=== PATIENT | male | born 1965 | race African-American/Black ===

== ENCOUNTER 2018-06-06 09:11 | Inpatient (IN) | payer OTHER ==
--- NOTE | 2018-06-06 11:00 | HP ---
CIWA Score Nausea/Vomitin Muscle Tremors: 2 Anxiety: 2 Agitation: 2 Paroxysmal Sweats: 1-Minimal Palms Moist Orientation: 0-Oriented Tacttile Disturbances: 1-Very Mild Itch/Numbness Auditory Disturbances: 1-Very Mild Visual Disturbances: 0-None Headache: 2-Mild CIWA-Ar Total Score: 13 - Admission Criteria OASAS Guidelines: Admission for Medically Managed Detox: Requires at least one of the followin. CIWA greater than 12 2. Seizures within the past 24 hours 3. Delirium tremens within the past 24 hours 4. Hallucinations within the past 24 hours 5. Acute intervention needed for co occurring medical disorder 6. Acute intervention needed for co occurring psychiatric disorder 7. Severe withdrawal that cannot be handled at a lower level of care (continued vomiting, continued diarrhea, abnormal vital signs) requiring intravenous medication and/or fluids 8. Admission ROS BHS - HPI Chief Complaint: i need help to stop drinking alcohol and cocaine Allergies/Adverse Reactions: Allergies Allergy/AdvReac Type Severity Reaction Status Date / Time No Known Allergies Allergy Verified 06/06/18 09:46 History of Present Illness: this 53 years old male with alcohol,cocaine dependence seeking detox,withdrawal symptom, [facility] has been in [facility] in the past has been drinking heavy for last 2 months nicotine dependence 1/2 pack,does not need nicotine replacement longest period of sobriety 10 years may go to rehab after detox Exam Limitations: No Limitations - Ebola screening Have you traveled outside of the country in the last 21 days: No Have you had contact with anyone from an Ebola affected area: No Do you have a fever: No - Review of Systems Constitutional: Loss of Appetite, Malaise, Night Sweats, Changes in sleep, Weakness, Unintentional Wgt. Loss EENT: reports: Nose Congestion Respiratory: reports: No Symptoms reported Cardiac: reports: No Symptoms Reported GI: reports: Nausea, Poor Appetite, Abdominal cramping : reports: No Symptoms Reported Musculoskeletal: reports: Back Pain, Muscle Pain Integumentary: reports: Dryness Neuro: reports: Headache, Tremors Endocrine: reports: No Symptoms Reported Hematology: reports: No Symptoms Reported Psychiatric: reports: No Sypmtoms Reported, Judgement Intact, Mood/Affect Appropiate, Orientated x3 Other Systems: Reviewed and Negative Patient History - Patient Medical History Hx Anemia: No Hx Asthma: No Hx Chronic Obstructive Pulmonary Disease (COPD): No Hx Cancer: No Hx Cardiac Disorders: No Hx Congestive Heart Failure: No Hx Hypertension: No Hx Hypercholesterolemia: No Hx Pacemaker: No HX Cerebrovascular Accident: No Hx Seizures: No Hx Dementia: No Hx Diabetes: No Hx Gastrointestinal Disorders: No Hx Liver Disease: No Hx Genitourinary Disorders: No Hx Sexually Transmitted Disorders: No Hx Renal Disease (ESRD): No Hx Thyroid Disease: No Hx Human Immunodeficiency Virus (HIV): No (last hiv 12/29 negative) Hx Hepatitis C: No Hx Depression: No Hx Suicide Attempt: No Hx Bipolar Disorder: No Hx Schizophrenia: No Other Medical History: no sjuicidal,no homicidal - Patient Surgical History Past Surgical History: Yes Hx Abdominal Surgery: Yes (right inguinal hernia in 1999) - PPD History Previous Implant?: Yes Documented Results: Positive w/o proof Implanted On Prior [facility] Admission?: No PPD to be Administered?: No - Smoking Cessation Smoking history: Current every day smoker Have you smoked in the past 12 months: Yes Aproximately how many cigarettes per day: 10 Hx Chewing Tobacco Use: No Initiated information on smoking cessation: Yes 'Breaking Loose' booklet given: 06/06/18 - Substance & Tx. History Hx Alcohol Use: Yes Hx Substance Use: Yes Substance Use Type: Alcohol, Cocaine Hx Substance [place] - Substances abused Alcohol Substance route: Oral Frequency: Daily Amount used: 2 pints of vodka and henessy/6 packs of 25 ozs of beer Age of first use: 17 Date of last use: 06/06/18 Crack Substance route: Smoking Frequency: Daily Amount used: 200$ to 300$ Age of first use: 32 Date of last use: 06/05/18 Family Disease History - Family Disease History Family History: Denies Admission Physical Exam BHS - Vital Signs Vital Signs: Vital Signs - 24 hr 06/06/18 06/06/18 09:45 10:21 Temperature 97.3 F L 97.3 F L Pulse Rate 73 73 Respiratory 18 18 Rate Blood Pressure 105/65 105/65 - Physical General Appearance: Yes: Moderate Distress, Tremorous, Irritable, Sweating, Anxious HEENTM: Yes: Normal ENT Inspection, XENIA, Pharynx Normal Respiratory: Yes: Within Normal Limits, Lungs Clear, Normal Breath Sounds Neck: Yes: Within Normal Limits, Supple, Trachea in good position Breast: Yes: Within Normal Limits Cardiology: Yes: Within Normal Limits, Regular Rhythm, Regular Rate, S1, S2 Abdominal: Yes: Within Normal Limits, Normal Bowel Sounds, Non Tender, Flat, Soft Genitourinary: Yes: Within Normal Limits Back: Yes: Muscle Spasm Musculoskeletal: Yes: Back pain, Muscle Pain Extremities: Yes: Tremors Neurological: Yes: 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 II-XII NML intact, Fully Oriented, Alert, Motor Strength 5/5 Integumentary: Yes: Dry Lymphatic: Yes: Within Normal Limits - Diagnostic (1) Alcohol dependence with uncomplicated withdrawal Current Visit: Yes Status: Acute (2) Cocaine dependence Current Visit: Yes Status: Acute (3) Positive PPD Current Visit: Yes Status: Acute (4) Dehydration Current Visit: Yes Status: Acute (5) Weight loss Current Visit: Yes Status: Acute (6) Nicotine dependence Current Visit: Yes Status: Acute (7) History of right inguinal hernia repair Current Visit: Yes Status: Acute Cleared for Admission [facility] - Detox or Rehab [facility] Level of Care: Medically Managed Detox Regimen/Protocol: Librium Breathalyzer - Breathalyzer Breathalyzer: 0 Urine Drug Screen - Test Device Lot number: [id number] Expiration date: 01/11/20 - Control Is test valid?: Yes - Results Drug screen NEGATIVE: No Urine drug screen results: [facility]-Cocaine Inpatient Rehab Admission - Rehab Decision to Admit Inpatient rehab admission?: No
[2018-06-06] MEDS ORDERED: BISMUTH SUBSALICYLATE 262 MG/15 ML BTL PO PRN (11:12)
[2018-06-06] MEDS ORDERED: MAGNESIUM HYDROX 2400MG/30ML ORAL SUSPENSION 30 ML CUP PO PRN (11:12)
[2018-06-06] MEDS ORDERED: MAG HYDROX/AL HYDROX/SIMETH 30 ML UNIT-DOSE CUP PO PRN (11:12)
[2018-06-06] MEDS ORDERED: METHOCARBAMOL 500 MG TABLET PO PRN (11:12)
[2018-06-06] MEDS ORDERED: MELATONIN 5 MG TABLETS PO PRN (11:12)
[2018-06-06] MEDS ORDERED: chlordiazePOXIDE HCL 25 MG CAPSULE PO PRN (11:12)
[2018-06-06] MEDS ORDERED: ACETAMINOPHEN 325 MG TABLET (FP) PO PRN ×2 (11:12)
[2018-06-06] MEDS ORDERED: IBUPROFEN 400 MG TABLET (FP) PO PRN (11:12)
[2018-06-06] MEDS ORDERED: MENTHOL/PHENOL 1 EACH UD MM PRN (11:12)
[2018-06-06] MEDS ORDERED: hydrOXYzine PAMOATE 25 MG CAPSULE (FP) PO PRN (11:12)
[2018-06-06] MEDS ORDERED: MAGNESIUM CITRATE 300 ML BOTTLE PO PRN (11:12)
[2018-06-06 14:49] LABS: HEMATOCRIT 40.5 % (35.4-49); HEMOGLOBIN 13.1 GM/dL (11.7-16.9); MCH 30.7 pg (25.7-33.7); MCHC 32.3 g/dl (32.0-35.9); MEAN CELL VOLUME 95.3 fl (80-96); MEAN PLT VOLUME 6.9 fl (7.5-11.1); PLATELET COUNT 354 K/MM3 (134-434); RBC 4.25 M/mm3 (4.00-5.60); RDW 13.5 % (11.9-15.9); WHITE BLOOD COUNT 4.8 K/mm3 (4.0-10.0)
[2018-06-06 15:01] LABS: SICKLE CELL SCREEN NEGATIVE (NEGATIVE)
[2018-06-06 15:07] LABS: ALBUMIN 3.7 g/dl (3.4-5.0); ALK PHOS 75 U/L (45-117); ANION GAP 7 MMOL/L (8-16); BILIRUBIN,TOTAL 0.3 mg/dL (0.2-1); BLOOD UREA NITROGEN 18 mg/dL (7-18); CALCIUM 9.4 mg/dL (8.5-10.1); CHLORIDE 101 mmol/L (98-107); CO2 29 mmol/L (21-32); CREATININE 0.9 mg/dL (0.55-1.3); GLUCOSE,RANDOM 82 mg/dL (74-106); POTASSIUM 4.3 mmol/L (3.5-5.1); SGOT/AST 10 U/L (15-37); SGPT/ALT 15 U/L (13-61); SODIUM 137 mmol/L (136-145); TOT PROT 7.9 g/dl (6.4-8.2)
[2018-06-06] MEDS: chlordiazePOXIDE HCL 25 MG CAPSULE PO SCH ×2 (16:40→22:20)
[2018-06-06] MEDS: THIAMINE HCL 100 MG TABLET (FP) PO SCH (22:20)
[2018-06-07 00:08] LABS: URINE APPEARANCE CLOUDY; URINE BACTERIA 7.4 /hpf (NEGATIVE); URINE BILIRUBIN NEGATIVE (NEGATIVE); URINE CASTS 3 /lpf (0-8); URINE COLOR YELLOW; URINE GLUCOSE (UA) NEGATIVE (NEGATIVE); URINE KETONE TRACE (NEGATIVE); URINE LEUK ESTERASE NEGATIVE (NEGATIVE); URINE NITRITE NEGATIVE (NEGATIVE); URINE PROTEIN NEGATIVE (NEGATIVE); URINE RBC 19 /hpf (0-4); URINE WBC 4 /hpf (0-5)
[2018-06-07] MEDS: chlordiazePOXIDE HCL 25 MG CAPSULE PO SCH ×4 (06:55→22:41)
[2018-06-07] MEDS: PRENATAL VITAMINS W/ FOLIC ACID TABLET (FP) PO SCH (10:06)
--- NOTE | 2018-06-07 15:24 | EKG ---
Test Reason : Blood Pressure : / mmHG Vent. Rate : 058 BPM Atrial Rate : 058 BPM P-R Int : 152 ms QRS Dur : 080 ms QT Int : 416 ms P-R-T Axes : -85 025 034 degrees QTc Int : 408 ms UNUSUAL P AXIS, POSSIBLE ECTOPIC ATRIAL BRADYCARDIA ABNORMAL ECG NO PREVIOUS ECGS AVAILABLE Confirmed by YULIANA ZIMMERMAN MD ([id number]) on 06/07/2018 3:23:23 PM Referred By: Confirmed By:YULIANA ZIMMERMAN MD
--- NOTE | 2018-06-07 17:30 | PN ---
[facility] CIWA - CIWA Score Nausea/Vomitin-No Nausea/No Vomiting Muscle Tremors: 3 Anxiety: 3 Agitation: 1-Slight > Activity Paroxysmal Sweats: No Perspiration Orientation: 0-Oriented Tacttile Disturbances: 2-Mild Itch/Numbness/Burn Auditory Disturbances: 2-Mild Harshness/Frighten Visual Disturbances: 1-Very Mild Sensitivity Headache: 0-None Present CIWA-Ar Total Score: 12 BHS Progress Note (SOAP) Subjective: Fatigue, Tremors, Anxious, Interrupted sleep. Objective: PATIENT A & O X 3, OBSERVED AMBULATING ON UNIT UNASSISTED. IN NO ACUTE DISTRESS. 06/07/18 17:29 Vital Signs Temperature 96.7 F L 06/07/18 14:15 Pulse Rate 88 06/07/18 14:15 Respiratory Rate 18 06/07/18 14:15 Blood Pressure 129/73 06/07/18 14:15 O2 Sat by Pulse Oximetry (%) Laboratory Tests 06/06/18 06/06/18 06/06/18 11:05 11:05 11:05 WBC 4.8 RBC 4.25 Hgb 13.1 Hct 40.5 MCV 95.3 MCH 30.7 MCHC 32.3 RDW 13.5 Plt Count 354 MPV 6.9 L Sickle Cell Screen Negative Sodium 137 Potassium 4.3 Chloride 101 Carbon Dioxide 29 Anion Gap 7 L BUN 18 Creatinine 0.9 Creat Clearance w eGFR 88.96 Random Glucose 82 Calcium 9.4 Total Bilirubin 0.3 AST 10 L ALT 15 Alkaline Phosphatase 75 Total Protein 7.9 Albumin 3.7 Urine Color Urine Appearance Urine pH Ur Specific [place] Urine Protein Urine Glucose (UA) Urine Ketones Urine Blood Urine Nitrite Urine Bilirubin Urine Urobilinogen Ur Leukocyte Esterase Urine WBC (Auto) Urine RBC (Auto) Urine Casts (Auto) U Epithel Cells (Auto) Urine Crystals (Auto) Urine Bacteria (Auto) RPR Titer Nonreactive 06/06/18 18:33 WBC RBC Hgb Hct MCV MCH MCHC RDW Plt Count MPV Sickle Cell Screen Sodium Potassium Chloride Carbon Dioxide Anion Gap BUN Creatinine Creat Clearance w eGFR Random Glucose Calcium Total Bilirubin AST ALT Alkaline Phosphatase Total Protein Albumin Urine Color Yellow Urine Appearance Cloudy Urine pH 5.0 Ur Specific [place] 1.031 Urine Protein Negative Urine Glucose (UA) Negative Urine Ketones Trace H Urine Blood 1+ H Urine Nitrite Negative Urine Bilirubin Negative Urine Urobilinogen 1.0 Ur Leukocyte Esterase Negative Urine WBC (Auto) 4 Urine RBC (Auto) 19 Urine Casts (Auto) 3 U Epithel Cells (Auto) 1.0 Urine Crystals (Auto) none seen Urine Bacteria (Auto) 7.4 RPR Titer LABS NOTED. Assessment: 06/07/18 17:29 WITHDRAWAL SYMPTOMS. Plan: CONTINUE DETOX.
[2018-06-07] MEDS: THIAMINE HCL 100 MG TABLET (FP) PO SCH (22:41)
[2018-06-08] MEDS: chlordiazePOXIDE HCL 25 MG CAPSULE PO SCH ×2 (06:15→10:15)
[2018-06-08] MEDS: PRENATAL VITAMINS W/ FOLIC ACID TABLET (FP) PO SCH (10:15)
--- NOTE | 2018-06-08 16:24 | PN ---
S CIWA - CIWA Score Nausea/Vomitin-Mild Nausea/No Vomiting Muscle Tremors: 2 Anxiety: 1-Mildly Anxious Agitation: 2 Paroxysmal Sweats: 1-Minimal Palms Moist Orientation: 1-Uncertain about Date Tacttile Disturbances: 0-None Auditory Disturbances: 0-None Visual Disturbances: 0-None Headache: 1-Very Mild CIWA-Ar Total Score: 9 BHS Progress Note (SOAP) Subjective: feeling better today tolerate food and fluid well social with peers in day room Objective: 06/08/18 16:26 Vital Signs Temperature 97.9 F 06/08/18 14:36 Pulse Rate 85 06/08/18 14:36 Respiratory Rate 18 06/08/18 14:36 Blood Pressure 121/81 06/08/18 14:36 O2 Sat by Pulse Oximetry (%) Laboratory Last Values WBC 4.8 K/mm3 (4.0-10.0) 06/06/18 11:05 RBC 4.25 M/mm3 (4.00-5.60) 06/06/18 11:05 Hgb 13.1 GM/dL (11.7-16.9) 06/06/18 11:05 Hct 40.5 % (35.4-49) 06/06/18 11:05 MCV 95.3 fl (80-96) 06/06/18 11:05 MCH 30.7 pg (25.7-33.7) 06/06/18 11:05 MCHC 32.3 g/dl (32.0-35.9) 06/06/18 11:05 RDW 13.5 % (11.9-15.9) 06/06/18 11:05 Plt Count 354 K/MM3 (134-434) 06/06/18 11:05 MPV 6.9 fl (7.5-11.1) L 06/06/18 11:05 Sickle Cell Screen Negative (NEGATIVE) 06/06/18 11:05 Sodium 137 mmol/L (136-145) 06/06/18 11:05 Potassium 4.3 mmol/L (3.5-5.1) 06/06/18 11:05 Chloride 101 mmol/L (98-107) 06/06/18 11:05 Carbon Dioxide 29 mmol/L (21-32) 06/06/18 11:05 Anion Gap 7 MMOL/L (8-16) L 06/06/18 11:05 BUN 18 mg/dL (7-18) 06/06/18 11:05 Creatinine 0.9 mg/dL (0.55-1.3) 06/06/18 11:05 Creat Clearance w eGFR 88.96 (>60) 06/06/18 11:05 Random Glucose 82 mg/dL (74-106) 06/06/18 11:05 Calcium 9.4 mg/dL (8.5-10.1) 06/06/18 11:05 Total Bilirubin 0.3 mg/dL (0.2-1) 06/06/18 11:05 AST 10 U/L (15-37) L 06/06/18 11:05 ALT 15 U/L (13-61) 06/06/18 11:05 Alkaline Phosphatase 75 U/L (45-117) 06/06/18 11:05 Total Protein 7.9 g/dl (6.4-8.2) 06/06/18 11:05 Albumin 3.7 g/dl (3.4-5.0) 06/06/18 11:05 Urine Color Yellow 06/06/18 18:33 Urine Appearance Cloudy 06/06/18 18:33 Urine pH 5.0 (5.0-8.0) 06/06/18 18:33 Ur Specific [place] 1.031 (1.010-1.035) 06/06/18 18:33 Urine Protein Negative (NEGATIVE) 06/06/18 18:33 Urine Glucose (UA) Negative (NEGATIVE) 06/06/18 18:33 Urine Ketones Trace (NEGATIVE) H 06/06/18 18:33 Urine Blood 1+ (NEGATIVE) H 06/06/18 18:33 Urine Nitrite Negative (NEGATIVE) 06/06/18 18:33 Urine Bilirubin Negative (NEGATIVE) 06/06/18 18:33 Urine Urobilinogen 1.0 mg/dL (0.2-1.0) 06/06/18 18:33 Ur Leukocyte Esterase Negative (NEGATIVE) 06/06/18 18:33 Urine WBC (Auto) 4 /hpf (0-5) 06/06/18 18:33 Urine RBC (Auto) 19 /hpf (0-4) 06/06/18 18:33 Urine Casts (Auto) 3 /lpf (0-8) 06/06/18 18:33 U Epithel Cells (Auto) 1.0 /HPF (0-5/HPF) 06/06/18 18:33 Urine Crystals (Auto) none seen /hpf 06/06/18 18:33 Urine Bacteria (Auto) 7.4 /hpf (NEGATIVE) 06/06/18 18:33 RPR Titer Nonreactive (NONREACTIVE) 06/06/18 11:05 lab noted Assessment: 06/08/18 16:26 withdrawal sx Plan: continue detox
[2018-06-08] MEDS ORDERED: chlordiazePOXIDE HCL 10 MG CAPSULE PO PRN (17:00)
[2018-06-08] MEDS: chlordiazePOXIDE HCL 10 MG CAPSULE PO SCH ×2 (17:33→22:14)
[2018-06-08] MEDS: THIAMINE HCL 100 MG TABLET (FP) PO SCH (22:14)
[2018-06-09] MEDS: chlordiazePOXIDE HCL 10 MG CAPSULE PO SCH ×2 (05:09→10:08)
[2018-06-09] MEDS: PRENATAL VITAMINS W/ FOLIC ACID TABLET (FP) PO SCH (10:08)
[2018-06-09 13:12] VITALS: BP 127/76; PULSE 64; TEMP 96.4
--- NOTE | 2018-06-09 13:16 | PN ---
S CIWA - CIWA Score Nausea/Vomitin-No Nausea/No Vomiting Muscle Tremors: 1-None Visible, but Trail Anxiety: 1-Mildly Anxious Agitation: 1-Slight > Activity Paroxysmal Sweats: No Perspiration Orientation: 0-Oriented Tacttile Disturbances: 0-None Auditory Disturbances: 0-None Visual Disturbances: 1-Very Mild Sensitivity Headache: 1-Very Mild CIWA-Ar Total Score: 5 BHS Progress Note (SOAP) Subjective: feeling better but tired discuss aftercare with staff Objective: 06/09/18 13:18 Vital Signs Temperature 96.4 F L 06/09/18 13:11 Pulse Rate 64 06/09/18 13:11 Respiratory Rate 18 06/09/18 13:11 Blood Pressure 127/76 06/09/18 13:11 O2 Sat by Pulse Oximetry (%) Laboratory Last Values WBC 4.8 K/mm3 (4.0-10.0) 06/06/18 11:05 RBC 4.25 M/mm3 (4.00-5.60) 06/06/18 11:05 Hgb 13.1 GM/dL (11.7-16.9) 06/06/18 11:05 Hct 40.5 % (35.4-49) 06/06/18 11:05 MCV 95.3 fl (80-96) 06/06/18 11:05 MCH 30.7 pg (25.7-33.7) 06/06/18 11:05 MCHC 32.3 g/dl (32.0-35.9) 06/06/18 11:05 RDW 13.5 % (11.9-15.9) 06/06/18 11:05 Plt Count 354 K/MM3 (134-434) 06/06/18 11:05 MPV 6.9 fl (7.5-11.1) L 06/06/18 11:05 Sickle Cell Screen Negative (NEGATIVE) 06/06/18 11:05 Sodium 137 mmol/L (136-145) 06/06/18 11:05 Potassium 4.3 mmol/L (3.5-5.1) 06/06/18 11:05 Chloride 101 mmol/L (98-107) 06/06/18 11:05 Carbon Dioxide 29 mmol/L (21-32) 06/06/18 11:05 Anion Gap 7 MMOL/L (8-16) L 06/06/18 11:05 BUN 18 mg/dL (7-18) 06/06/18 11:05 Creatinine 0.9 mg/dL (0.55-1.3) 06/06/18 11:05 Creat Clearance w eGFR 88.96 (>60) 06/06/18 11:05 Random Glucose 82 mg/dL (74-106) 06/06/18 11:05 Calcium 9.4 mg/dL (8.5-10.1) 06/06/18 11:05 Total Bilirubin 0.3 mg/dL (0.2-1) 06/06/18 11:05 AST 10 U/L (15-37) L 06/06/18 11:05 ALT 15 U/L (13-61) 06/06/18 11:05 Alkaline Phosphatase 75 U/L (45-117) 06/06/18 11:05 Total Protein 7.9 g/dl (6.4-8.2) 06/06/18 11:05 Albumin 3.7 g/dl (3.4-5.0) 06/06/18 11:05 Urine Color Yellow 06/06/18 18:33 Urine Appearance Cloudy 06/06/18 18:33 Urine pH 5.0 (5.0-8.0) 06/06/18 18:33 Ur Specific [place] 1.031 (1.010-1.035) 06/06/18 18:33 Urine Protein Negative (NEGATIVE) 06/06/18 18:33 Urine Glucose (UA) Negative (NEGATIVE) 06/06/18 18:33 Urine Ketones Trace (NEGATIVE) H 06/06/18 18:33 Urine Blood 1+ (NEGATIVE) H 06/06/18 18:33 Urine Nitrite Negative (NEGATIVE) 06/06/18 18:33 Urine Bilirubin Negative (NEGATIVE) 06/06/18 18:33 Urine Urobilinogen 1.0 mg/dL (0.2-1.0) 06/06/18 18:33 Ur Leukocyte Esterase Negative (NEGATIVE) 06/06/18 18:33 Urine WBC (Auto) 4 /hpf (0-5) 06/06/18 18:33 Urine RBC (Auto) 19 /hpf (0-4) 06/06/18 18:33 Urine Casts (Auto) 3 /lpf (0-8) 06/06/18 18:33 U Epithel Cells (Auto) 1.0 /HPF (0-5/HPF) 06/06/18 18:33 Urine Crystals (Auto) none seen /hpf 06/06/18 18:33 Urine Bacteria (Auto) 7.4 /hpf (NEGATIVE) 06/06/18 18:33 RPR Titer Nonreactive (NONREACTIVE) 06/06/18 11:05 lab noted Assessment: 06/09/18 13:19 mild alcohol withdrawal sx Plan: continue detox
--- NOTE | 2018-06-09 14:48 | PN ---
S CIWA - CIWA Score Nausea/Vomitin-No Nausea/No Vomiting Muscle Tremors: None Anxiety: 2 Agitation: 1-Slight > Activity Paroxysmal Sweats: No Perspiration Orientation: 0-Oriented Tacttile Disturbances: 0-None Auditory Disturbances: 0-None Visual Disturbances: 0-None Headache: 0-None Present CIWA-Ar Total Score: 3 BHS Progress Note (SOAP) Subjective: Anxious (Mild). Patient concerned about aftercare options. Patient advised to consult his counselor regarding this matter. Patient verbalized understanding of recommendation. Patient denies any other Withdrawal / Detox symptoms at this time and reports that he physically feels well overall. Objective: PATIENT A & O X 3, OBSERVED AMBULATING ON UNIT UNASSISTED. IN NO ACUTE DISTRESS. 06/09/18 14:46 Vital Signs Temperature 96.4 F L 06/09/18 13:11 Pulse Rate 64 06/09/18 13:11 Respiratory Rate 18 06/09/18 13:11 Blood Pressure 127/76 06/09/18 13:11 O2 Sat by Pulse Oximetry (%) Laboratory Tests 06/06/18 06/06/18 06/06/18 11:05 11:05 11:05 WBC 4.8 RBC 4.25 Hgb 13.1 Hct 40.5 MCV 95.3 MCH 30.7 MCHC 32.3 RDW 13.5 Plt Count 354 MPV 6.9 L Sickle Cell Screen Negative Sodium 137 Potassium 4.3 Chloride 101 Carbon Dioxide 29 Anion Gap 7 L BUN 18 Creatinine 0.9 Creat Clearance w eGFR 88.96 Random Glucose 82 Calcium 9.4 Total Bilirubin 0.3 AST 10 L ALT 15 Alkaline Phosphatase 75 Total Protein 7.9 Albumin 3.7 Urine Color Urine Appearance Urine pH Ur Specific [place] Urine Protein Urine Glucose (UA) Urine Ketones Urine Blood Urine Nitrite Urine Bilirubin Urine Urobilinogen Ur Leukocyte Esterase Urine WBC (Auto) Urine RBC (Auto) Urine Casts (Auto) U Epithel Cells (Auto) Urine Crystals (Auto) Urine Bacteria (Auto) RPR Titer Nonreactive 06/06/18 18:33 WBC RBC Hgb Hct MCV MCH MCHC RDW Plt Count MPV Sickle Cell Screen Sodium Potassium Chloride Carbon Dioxide Anion Gap BUN Creatinine Creat Clearance w eGFR Random Glucose Calcium Total Bilirubin AST ALT Alkaline Phosphatase Total Protein Albumin Urine Color Yellow Urine Appearance Cloudy Urine pH 5.0 Ur Specific [place] 1.031 Urine Protein Negative Urine Glucose (UA) Negative Urine Ketones Trace H Urine Blood 1+ H Urine Nitrite Negative Urine Bilirubin Negative Urine Urobilinogen 1.0 Ur Leukocyte Esterase Negative Urine WBC (Auto) 4 Urine RBC (Auto) 19 Urine Casts (Auto) 3 U Epithel Cells (Auto) 1.0 Urine Crystals (Auto) none seen Urine Bacteria (Auto) 7.4 RPR Titer LABS NOTED. Assessment: 06/09/18 14:47 WITHDRAWAL SYMPTOMS. Plan: CONTINUE DETOX. PATIENT SCHEDULED FOR D/C TOMORROW.
--- NOTE | 2018-06-09 14:58 | DS ---
[facility] Detox Discharge Summary Admission Date: 06/06/18 Discharge Date: 06/09/18 - History Present History: Alcohol Dependence Additional Comments: 53 years old male admitted on 06/06/18 for alcohol withdrawal stabilization feeling better today preferring to go to alcohol rehab today alert no acute distress aftercare [facility] Pertinent Past History: bring in medication list and lab report to aftercare appointment - Physical Exam Results Vital Signs: Vital Signs Temperature 96.4 F L 06/09/18 13:11 Pulse Rate 64 06/09/18 13:11 Respiratory Rate 18 06/09/18 13:11 Blood Pressure 127/76 06/09/18 13:11 O2 Sat by Pulse Oximetry (%) Pertinent Admission Physical Exam Findings: alcohol withdrawal sx Laboratory Last Values WBC 4.8 K/mm3 (4.0-10.0) 06/06/18 11:05 RBC 4.25 M/mm3 (4.00-5.60) 06/06/18 11:05 Hgb 13.1 GM/dL (11.7-16.9) 06/06/18 11:05 Hct 40.5 % (35.4-49) 06/06/18 11:05 MCV 95.3 fl (80-96) 06/06/18 11:05 MCH 30.7 pg (25.7-33.7) 06/06/18 11:05 MCHC 32.3 g/dl (32.0-35.9) 06/06/18 11:05 RDW 13.5 % (11.9-15.9) 06/06/18 11:05 Plt Count 354 K/MM3 (134-434) 06/06/18 11:05 MPV 6.9 fl (7.5-11.1) L 06/06/18 11:05 Sickle Cell Screen Negative (NEGATIVE) 06/06/18 11:05 Sodium 137 mmol/L (136-145) 06/06/18 11:05 Potassium 4.3 mmol/L (3.5-5.1) 06/06/18 11:05 Chloride 101 mmol/L (98-107) 06/06/18 11:05 Carbon Dioxide 29 mmol/L (21-32) 06/06/18 11:05 Anion Gap 7 MMOL/L (8-16) L 06/06/18 11:05 BUN 18 mg/dL (7-18) 06/06/18 11:05 Creatinine 0.9 mg/dL (0.55-1.3) 06/06/18 11:05 Creat Clearance w eGFR 88.96 (>60) 06/06/18 11:05 Random Glucose 82 mg/dL (74-106) 06/06/18 11:05 Calcium 9.4 mg/dL (8.5-10.1) 06/06/18 11:05 Total Bilirubin 0.3 mg/dL (0.2-1) 06/06/18 11:05 AST 10 U/L (15-37) L 06/06/18 11:05 ALT 15 U/L (13-61) 06/06/18 11:05 Alkaline Phosphatase 75 U/L (45-117) 06/06/18 11:05 Total Protein 7.9 g/dl (6.4-8.2) 06/06/18 11:05 Albumin 3.7 g/dl (3.4-5.0) 06/06/18 11:05 Urine Color Yellow 06/06/18 18:33 Urine Appearance Cloudy 06/06/18 18:33 Urine pH 5.0 (5.0-8.0) 06/06/18 18:33 Ur Specific [place] 1.031 (1.010-1.035) 06/06/18 18:33 Urine Protein Negative (NEGATIVE) 06/06/18 18:33 Urine Glucose (UA) Negative (NEGATIVE) 06/06/18 18:33 Urine Ketones Trace (NEGATIVE) H 06/06/18 18:33 Urine Blood 1+ (NEGATIVE) H 06/06/18 18:33 Urine Nitrite Negative (NEGATIVE) 06/06/18 18:33 Urine Bilirubin Negative (NEGATIVE) 06/06/18 18:33 Urine Urobilinogen 1.0 mg/dL (0.2-1.0) 06/06/18 18:33 Ur Leukocyte Esterase Negative (NEGATIVE) 06/06/18 18:33 Urine WBC (Auto) 4 /hpf (0-5) 06/06/18 18:33 Urine RBC (Auto) 19 /hpf (0-4) 06/06/18 18:33 Urine Casts (Auto) 3 /lpf (0-8) 06/06/18 18:33 U Epithel Cells (Auto) 1.0 /HPF (0-5/HPF) 06/06/18 18:33 Urine Crystals (Auto) none seen /hpf 06/06/18 18:33 Urine Bacteria (Auto) 7.4 /hpf (NEGATIVE) 06/06/18 18:33 RPR Titer Nonreactive (NONREACTIVE) 06/06/18 11:05 lab noted - Treatment Hospital Course: Detox Protocol Followed, Detoxed Safely, Responded well, Discharged Condition Good, Rehab Referral Accepted Patient has Accepted a Rehab Referral to: [facility] - Medication Discharge Medications: Ambulatory Orders NK [No Known Home Medication] 06/06/18 - Diagnosis (1) Alcohol dependence with uncomplicated withdrawal Current Visit: Yes Status: Acute (2) Nicotine dependence Current Visit: Yes Status: Acute Qualifiers: Nicotine product type: cigarettes Substance use status: in withdrawal Qualified Code(s): F17.213 - Nicotine dependence, cigarettes, with withdrawal (3) Positive PPD Current Visit: Yes Status: Resolved (4) Weight loss Current Visit: Yes Status: Acute - AMA Did Patient Leave Against Medical Advice: No
[2018-06-09] MEDS ORDERED: chlordiazePOXIDE HCL 10 MG CAPSULE PO SCH (17:00)
== END 2018-06-09 14:45 | disposition home or self-care (01) | DRG 774 ==
LOC: YASAS 09:11 → Y3N 11:20
PROVIDERS: ADMIT Surgery; ATTEND Surgery
PROC: HZ2ZZZZ Detoxification Services for Substance Abuse Treatment (ICD-10-PCS; principal; 2018-06-06)
DX: F10.230 Alcohol dependence with withdrawal, uncomplicated (principal); F14.20 Cocaine dependence, uncomplicated; F17.213 Nicotine dependence, cigarettes, with withdrawal; E86.0 Dehydration; R63.4 Abnormal weight loss; Z68.20 Body mass index [BMI] 20.0-20.9, adult; R76.11 Nonspecific reaction to tuberculin skin test without active tuberculosis; Z98.890 Other specified postprocedural states
CPT/HCPCS: 36415; 71046-TC-FY; 80053; 81003; 85027; 85660; 86593; 93005; 93010

== ENCOUNTER 2018-09-08 10:55 | Inpatient (IN) | payer SELFPAY ==
--- NOTE | 2018-09-08 13:41 | HP ---
CIWA Score Nausea/Vomitin-No Nausea/No Vomiting Muscle Tremors: None Anxiety: 0-No Anxiety, at Ease Agitation: 1-Slight > Activity Paroxysmal Sweats: No Perspiration Orientation: 0-Oriented Tacttile Disturbances: 0-None Auditory Disturbances: 0-None Visual Disturbances: 0-None Headache: 0-None Present CIWA-Ar Total Score: 1 - Admission Criteria OASAS Guidelines: Admission for Medically Managed Detox: Requires at least one of the followin. CIWA greater than 12 2. Seizures within the past 24 hours 3. Delirium tremens within the past 24 hours 4. Hallucinations within the past 24 hours 5. Acute intervention needed for co occurring medical disorder 6. Acute intervention needed for co occurring psychiatric disorder 7. Severe withdrawal that cannot be handled at a lower level of care (continued vomiting, continued diarrhea, abnormal vital signs) requiring intravenous medication and/or fluids 8. Admission ROS [facility] Chief Complaint: 53 y/o M with no significant PMH who presents for rehab from alcohol. Also w/ hx of cocaine use. Allergies/Adverse Reactions: Allergies Allergy/AdvReac Type Severity Reaction Status Date / Time No Known Allergies Allergy Verified 09/08/18 11:45 History of Present Illness: 53 y/o M with no significant PMH who presents for rehab from alcohol. Also with hx of cocaine use. Per pt, his last drink was this AM. He drank 1 pint of vodka and 2x 24oz beer. Drinks 3 pints of vodka daily as well as 5-6 beers in between. Longest sobriety was for 3-4 months, was going to AA meetings. No history of alcohol withdrawal sz, however + for past blackouts. States that he has increased stress d/t home errands and bills. Drinks to "forget." When he withdraws, he becomes occasionally becomes tremulous. However this does not always happen. Last crack cocaine use was at midnight last night. Smoked $50 worth. Recently, only used 1x recently 2 weeks prior. Used to smoke cocaine more frequently, but has "slowed down." Cocaine makes him "feel elevated." Was in detox at [facility] 05/2018. Has also been at [place] for detox previously last yr , in 30 day program. After detox, interested in 28 day program. 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 PMH: as above; none PsxH: 2015- R hand laceration, repair w resultant nerve damage, 1996- W , 1999- L inguinal hernia repair meds: denies allergies: NKDA FH: denies SH: lives either at his son's mother's house or in [place] at his aunt's house. has a 3 yr old son. smokes 1/2ppd x 10 yrs. alcohol and cocaine use as above. Exam Limitations: No Limitations - Ebola screening Have you traveled outside of the country in the last 21 days: No Have you had contact with anyone from an Ebola affected area: No Have you been sick,other than usual withdrawal symptoms: No Do you have a fever: No - Review of Systems Constitutional: Unintentional Wgt. Loss (+20 pound weight loss - 4 weeks) EENT: reports: No Symptoms Reported Respiratory: reports: No Symptoms reported Cardiac: reports: No Symptoms Reported GI: reports: No Symptoms Reported : reports: No Symptoms Reported Musculoskeletal: reports: No Symptoms Reported Integumentary: reports: No Symptoms Reported Neuro: reports: No Symptoms reported Endocrine: reports: No Symptoms Reported Hematology: reports: No Symptoms Reported Psychiatric: reports: Orientated x3 Patient History - Patient Medical History Hx Anemia: No Hx Asthma: No Hx Chronic Obstructive Pulmonary Disease (COPD): No Hx Cancer: No Hx Cardiac Disorders: No Hx Congestive Heart Failure: No Hx Hypertension: No Hx Hypercholesterolemia: No Hx Pacemaker: No HX Cerebrovascular Accident: No Hx Seizures: No Hx Dementia: No Hx Diabetes: No Hx Gastrointestinal Disorders: No Hx Liver Disease: No Hx Genitourinary Disorders: No Hx Sexually Transmitted Disorders: No Hx Renal Disease (ESRD): No Hx Thyroid Disease: No Hx Human Immunodeficiency Virus (HIV): No (last hiv 12/29 negative) Hx Hepatitis C: No Hx Depression: No Hx Suicide Attempt: No Hx Bipolar Disorder: No Hx Schizophrenia: No - Patient Surgical History Past Surgical History: Yes Hx Neurologic Surgery: No Hx Cataract Extraction: No Hx Cardiac Surgery: No Hx Lung Surgery: No Hx Breast Surgery: No Hx Breast Biopsy: No Hx Abdominal Surgery: Yes (L inguinal hernia repair in 1999) Hx Appendectomy: No Hx Cholecystectomy: No Hx Genitourinary Surgery: No Hx Section: No Hx Orthopedic Surgery: No Other Surgical History: [facility] 1996, 2015 R hand laceration and repair, nerve damage Anesthesia Reaction: No - PPD History Documented Results: Negative w/o proof PPD to be Administered?: No - Reproductive History Patient is a Female of Child Bearing Age (11 -55 yrs old): No - Smoking Cessation Smoking history: Current every day smoker Have you smoked in the past 12 months: Yes Aproximately how many cigarettes per day: 10 Hx Chewing Tobacco Use: No Initiated information on smoking cessation: Yes 'Breaking Loose' booklet given: 09/08/18 - Substance & Tx. History Hx Alcohol Use: Yes Substance Use Type: Alcohol, Cocaine Hx Substance Use Treatment: Yes ([facility] 05/2018 detox, [place] [facility] ) - Substances abused Alcohol Substance route: Oral Frequency: Daily Amount used: 2 pints vodka and 6 beers Age of first use: 17 Date of last use: 09/08/18 Crack Substance route: Smoking Frequency: 1-3 times last 30 days Amount used: $200 Age of first use: 32 Date of last use: 08/25/18 Family Disease History - Family Disease History Family History: Denies Admission Physical Exam [facility] - Vital Signs Vital Signs: Vital Signs - 24 hr 09/08/18 11:47 Temperature 97.9 F Pulse Rate 77 Respiratory 18 Rate Blood Pressure 113/63 - Physical General Appearance: Yes: Within Normal Limits HEENTM: Yes: Within Normal Limits Respiratory: Yes: Lungs Clear Neck: Yes: Supple Breast: Yes: Breast Exam Deferred Cardiology: Yes: Regular Rhythm, Regular Rate, S1, S2 Abdominal: Yes: Within Normal Limits Genitourinary: Yes: Within Normal Limits Back: Yes: Within Normal Limits Musculoskeletal: Yes: full range of Motion Extremities: Yes: Within Normal Limits 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 NML intact Integumentary: Yes: Within Normal Limits Lymphatic: Yes: Within Normal Limits - Diagnostic (1) Cocaine dependence Current Visit: Yes Status: Chronic Qualifiers: Substance use status: uncomplicated Qualified Code(s): F14.20 - Cocaine dependence, uncomplicated (2) Dehydration Current Visit: Yes Status: Chronic (3) Nicotine dependence Current Visit: Yes Status: Chronic Qualifiers: Nicotine product type: cigarettes Substance use status: in withdrawal Qualified Code(s): F17.213 - Nicotine dependence, cigarettes, with withdrawal (4) Weight loss Current Visit: Yes Status: Acute (5) Positive PPD Current Visit: Yes Status: Acute (6) Alcohol use disorder Current Visit: Yes Status: Chronic Cleared for Admission S - Detox or Rehab [facility] Level of Care: Medically Managed Detox Regimen/Protocol: Not Applicable Claeared for Rehab Admission: Yes Breathalyzer - Breathalyzer Breathalyzer: 0 Urine Drug Screen - Test Device Lot number: [id number] Expiration date: 06/10/20 - Control Is test valid?: Yes - Results Drug screen NEGATIVE: No Urine drug screen results: [facility]YMAN-Cocaine Inpatient Rehab Admission - Rehab Decision to Admit Inpatient rehab admission?: Yes - Initial Determination Are CD services needed?: Yes Free of communicable disease: Yes Not in need of hospitalization: Yes - Rehab Admission Criteria Previous failed treatment: Yes Poor recovery environment: Yes Comorbidities: Yes Lacks judgement: No Patient is meeting Inpatient Rehab admission criteria:: Yes
[2018-09-08] MEDS ORDERED: LOPERAMIDE HCL 2 MG CAPSULE PO PRN (14:07)
[2018-09-08] MEDS ORDERED: IBUPROFEN 400 MG TABLET (FP) PO PRN (14:07)
[2018-09-08] MEDS ORDERED: MAGNESIUM HYDROX 2400MG/30ML ORAL SUSPENSION 30 ML CUP PO PRN (14:07)
[2018-09-08] MEDS ORDERED: guaiFENesin 200 MG/10 ML 10 ML UNIT-DOSE CUPS PO PRN (14:07)
[2018-09-08] MEDS ORDERED: P-EPHED 60MG/TRIPROLIDI 2.5MG TABLET PO PRN (14:07)
[2018-09-08] MEDS ORDERED: ACETAMINOPHEN 325 MG TABLET (FP) PO PRN (14:07)
[2018-09-08] MEDS ORDERED: MAG HYDROX/AL HYDROX/SIMETH 30 ML UNIT-DOSE CUP PO PRN (14:07)
[2018-09-08] MEDS ORDERED: MENTHOL/PHENOL 1 EACH UD MM PRN (14:07)
--- NOTE | 2018-09-08 14:27 | PN ---
[facility] Progress Note Note: Patient was reviewed with resident Ruthie and appropriate for rehabilitation admission due to no alcohol on breath and patient was consenting to admit to rehabilitation since no recent alcohol is documented by breathalyzer. Patient has a strong history of alcohol use and has done alcohol detox in [facility] and rehabilitation. Dr. Jose
[2018-09-08] MEDS: NICOTINE 14 MG/24 HOURS TOPICAL PATCH TD SCH (18:21)
[2018-09-08] MEDS ORDERED: MELATONIN 5 MG TABLETS PO PRN (22:00)
[2018-09-09] MEDS: PRENATAL VITAMINS W/ FOLIC ACID TABLET (FP) PO SCH (11:08)
[2018-09-09] MEDS: NICOTINE 14 MG/24 HOURS TOPICAL PATCH TD SCH (11:08)
[2018-09-10 06:55] VITALS: BP 129/68; PULSE 61; TEMP 97.9
--- NOTE | 2018-09-10 09:53 | PN ---
[facility] Progress Note (SOAP) Subjective: Pt is a 53 y/o male admitted to rehab on 09/08/18 for alcohol and cocaine use disorder. Pt requesting to sign out today for personal reasons stating he has to go to "traffic court" amongst "other reasons". Pt met with counselor and referrals for aftercare provided for patient to follow up. Denies s/h/i. Objective: 09/10/18 10:39 Alert o x 3. ambulates with steady gait. Vital Signs - 24 hr 09/10/18 09/10/18 09/10/18 00:30 03:30 06:54 Temperature 97.9 F Pulse Rate 61 Respiratory 18 18 16 Rate Blood Pressure 129/68 Assessment: 09/10/18 10:38 Nad Medically stable 09/10/18 09:54 - [facility] Inpatient Service Med by Dayanara Almaguer Acct Num: [id number] : 1965 Patient Age: 53 [facility] Inpatient Services Medical - Diagnosis (1) Weight loss Current Visit: Yes Status: Acute (2) Alcohol use disorder Current Visit: Yes Status: Chronic (3) Cocaine dependence Qualifiers: Substance use status: uncomplicated Qualified Code(s): F14.20 - Cocaine dependence, uncomplicated Current Visit: Yes Status: Chronic (4) Nicotine dependence Qualifiers: Nicotine product type: cigarettes Substance use status: uncomplicated Qualified Code(s): F17.210 - Nicotine dependence, cigarettes, uncomplicated Current Visit: Yes Status: Chronic (5) History of right inguinal hernia repair Current Visit: Yes Status: Resolved Initialized on 09/10/18 09:54 - END OF NOTE Plan: Pt signed out AMA Follow up with [facility] program @ [place], [place] on 09/12/18. Follow up with primary care at [facility] @ [facility]/[place], [place] within 1-2 weeks after discharge.
[2018-09-10] MEDS: PRENATAL VITAMINS W/ FOLIC ACID TABLET (FP) PO SCH (10:12)
[2018-09-10] MEDS: NICOTINE 14 MG/24 HOURS TOPICAL PATCH TD SCH (10:12)
== END 2018-09-10 10:10 | disposition left against medical advice (07) | DRG 770 ==
LOC: YASAS 10:55 → Y5N 14:28 → UNDOADMIN 14:28 → Y5N 15:34
PROVIDERS: ADMIT Surgery; ATTEND Surgery
PROC: HZ2ZZZZ Detoxification Services for Substance Abuse Treatment (ICD-10-PCS; principal; 2018-09-08)
DX: F10.230 Alcohol dependence with withdrawal, uncomplicated (principal); F14.20 Cocaine dependence, uncomplicated; F17.210 Nicotine dependence, cigarettes, uncomplicated; E86.0 Dehydration; R63.4 Abnormal weight loss; R76.11 Nonspecific reaction to tuberculin skin test without active tuberculosis